=== PATIENT | male | born 1950 | race Caucasian/White ===

== ENCOUNTER 2022-03-11 14:22 | Emergency (ER) | payer MEDICARE ==
[2022-03-11] MEDS ORDERED: SODIUM CHLORIDE 0.9% 1,000 ML IV STA (17:42)
[2022-03-11 18:33] LABS: Appearance,Urine Clear (Clear); Bilirubin,Urine Negative (Negative); Blood,Urine Negative (Negative); Color,Urine Yellow; Glucose,Urine (UA) Negative (Negative); Ketones,Urine 1+ (Negative); Leukocyte Esterase,Urine Negative (Negative); Nitrite,Urine Negative (Negative); PH, Urine 5.5 (5.0-8.0); Protein,Urine Negative (Negative); Specific Gravity,Urine 1.012 (1.001-1.035); Urobilinogen,Urine <2.0 mg/dL (<2.0)
[2022-03-11 18:43] LABS: Basophils # (A) 0.1 k/uL (0-0.2); Basophils % (A) 1 %; Eosinophils # (A) 0.2 k/uL (0-0.7); Eosinophils % (A) 2 %; HGB 16.1 gm/dL (13.0-17.5); Lymphocytes # (A) 2.4 k/uL (1.0-4.8); Lymphocytes % (A) 31 %; MCH 33.5 pg (25.0-35.0); MCHC 34.2 g/dL (31.0-37.0); Monocytes # (A) 0.4 k/uL (0-1.0); Monocytes % (A) 5 %; Neutrophils # (A) 4.4 k/uL (1.3-7.7); Neutrophils % (A) 58 %; Platelet Count 198 k/uL (150-450); RDW 12.2 % (11.5-15.5); WBC 7.6 k/uL (3.8-10.6)
--- NOTE | 2022-03-11 18:54 | ED ---
General Adult HPI - General Chief complaint: Abdominal Pain Stated complaint: Lower Back Pain Time Seen by Provider: 03/11/22 17:34 Source: patient Mode of arrival: ambulatory Limitations: no limitations - History of Present Illness Initial comments: Patient is a 71-year-old male presenting with chief complaint of constipation. Patient states that over the last 2 days he has had an extremely small bowel movements. He states that it is causing pain in the lower back. Pain is worse with standing. No injury or trauma. Patient denies any abdominal pain. He was recently on antibiotics for UTI prescribed by his PCP. He states that when he urinates he sits down and then when he stands up he has to urinate again. No fever or chills. No nausea or vomiting. No hematochezia or melena. No chest pain or difficulty breathing. No palpitations, numbness, tingling, weakness. No loss of bowel or bladder control or saddle paresthesia. - Related Data Home Medications Medication Instructions Recorded Confirmed Ciprofloxacin HCl [Cipro] 500 mg PO BID 03/11/22 03/11/22 Omeprazole 20 mg PO DAILY 03/11/22 03/11/22 Simvastatin [Zocor] 40 mg PO DAILY 03/11/22 03/11/22 lisinopriL 40 mg PO DAILY 03/11/22 03/11/22 Allergies Allergy/AdvReac Type Severity Reaction Status Date / Time No Known Allergies Allergy Verified 03/11/22 20:04 Review of Systems ROS Statement: Those systems with pertinent positive or pertinent negative responses have been documented in the HPI. ROS Other: All systems not noted in ROS Statement are negative. Past Medical History Past Medical History: Hyperlipidemia, Hypertension History of Any Multi-Drug Resistant Organisms: None Reported Past Surgical History: Joint Replacement, Orthopedic Surgery Additional Past Surgical History / Comment(s): rt hip replacement 2020 Past Psychological History: No Psychological Hx Reported Smoking Status: Current every day smoker Past Alcohol Use History: Daily Past Drug Use History: None Reported General Exam Limitations: no limitations General appearance: alert, in no apparent distress Head exam: Present: atraumatic, normocephalic, normal inspection Eye exam: Present: normal appearance Neck exam: Present: normal inspection, full ROM Respiratory exam: Present: normal lung sounds bilaterally. Absent: respiratory distress, wheezes, rales, rhonchi, stridor Cardiovascular Exam: Present: regular rate, normal rhythm, normal heart sounds. Absent: systolic murmur, diastolic murmur, rubs, gallop, clicks GI/Abdominal exam: Present: soft. Absent: distended, tenderness, guarding, rebound, rigid Back exam: Absent: tenderness, CVA tenderness (R), CVA tenderness (L) Neurological exam: Present: alert, oriented X3, CN II-XII intact Psychiatric exam: Present: normal affect, normal mood Skin exam: Present: warm, dry, intact, normal color. Absent: rash Course Vital Signs 03/11/22 03/11/22 03/11/22 14:33 18:36 19:41 Temperature 98.0 F Pulse Rate 107 H 78 83 Respiratory 18 17 18 Rate Blood Pressure 161/103 154/102 172/109 O2 Sat by Pulse 98 99 97 Oximetry 03/11/22 03/11/22 20:21 22:50 Temperature 98.2 F Pulse Rate 82 88 Respiratory 17 17 Rate Blood Pressure 168/101 147/88 O2 Sat by Pulse 99 96 Oximetry Medical Decision Making - Medical Decision Making Patient is a 71-year-old male presenting with chief complaint of constipation. Patient states he hasn't had a bowel movement in 2 days, feels very bloated needs having lower back pain. Differential includes bowel obstruction, constipation, kidney stone, ileus, pyelonephritis, mechanical back pain. On physical examination heart and lungs are clear to auscultation, abdomen is soft, nontender, nondistended. No CVA tenderness. CBC shows no leukocytosis or anemia. CMP shows glucose 105, otherwise unremarkable. Lactic acid, amylase, lipase are WNL. Urine shows 1+ ketones, likely due to hydration status. CT of the abdomen and pelvis shows significant stool burden. Patient is given an en courtney here in the ER and is able to move his bowels. Patient reports significant improvement on reassessment. Patient is educated on supportive treatment for constipation, including at home Metamucil, MiraLAX, hydration, and staying active. Patient is discharged home. Follow-up with PCP. Report back to ER with any new or worsening symptoms. Discussed return parameters and answered all questions. Patient conveyed verbal understanding and agreed to the plan. I discussed this case in detail with my attending Dr. Ramon - Lab Data Result diagrams: 03/11/22 18:18 03/11/22 18:18 Lab Results 03/11/22 03/11/22 03/11/22 Range/Units 18:18 18:18 18:18 WBC 7.6 (3.8-10.6) k/uL RBC 4.80 (4.30-5.90) m/uL Hgb 16.1 (13.0-17.5) gm/dL Hct 47.0 (39.0-53.0) % MCV 98.0 (80.0-100.0) fL MCH 33.5 (25.0-35.0) pg MCHC 34.2 (31.0-37.0) g/dL RDW 12.2 (11.5-15.5) % Plt Count 198 (150-450) k/uL MPV 8.0 Neutrophils % 58 % Lymphocytes % 31 % Monocytes % 5 % Eosinophils % 2 % Basophils % 1 % Neutrophils # 4.4 (1.3-7.7) k/uL Lymphocytes # 2.4 (1.0-4.8) k/uL Monocytes # 0.4 (0-1.0) k/uL Eosinophils # 0.2 (0-0.7) k/uL Basophils # 0.1 (0-0.2) k/uL Sodium 141 (137-145) mmol/L Potassium 4.0 (3.5-5.1) mmol/L Chloride 107 (98-107) mmol/L Carbon Dioxide 26 (22-30) mmol/L Anion Gap 8 mmol/L BUN 14 (9-20) mg/dL Creatinine 0.91 (0.66-1.25) mg/dL Est GFR (CKD-EPI)AfAm >90 (>60 ml/min/1.73 sqM) Est GFR (CKD-EPI)NonAf 86 (>60 ml/min/1.73 sqM) Glucose 105 H (74-99) mg/dL Plasma Lactic Acid Alec (0.7-2.0) mmol/L Calcium 9.7 (8.4-10.2) mg/dL Total Bilirubin 0.5 (0.2-1.3) mg/dL AST 30 (17-59) U/L ALT 34 (4-49) U/L Alkaline Phosphatase 62 (38-126) U/L Total Protein 7.6 (6.3-8.2) g/dL Albumin 4.4 (3.5-5.0) g/dL Amylase 63 (30-110) U/L Lipase 181 (23-300) U/L Urine Color Yellow Urine Appearance Clear (Clear) Urine pH 5.5 (5.0-8.0) Ur Specific Clio 1.012 (1.001-1.035) Urine Protein Negative (Negative) Urine Glucose (UA) Negative (Negative) Urine Ketones 1+ H (Negative) Urine Blood Negative (Negative) Urine Nitrite Negative (Negative) Urine Bilirubin Negative (Negative) Urine Urobilinogen <2.0 (<2.0) mg/dL Ur Leukocyte Esterase Negative (Negative) 03/11/22 Range/Units 18:18 WBC (3.8-10.6) k/uL RBC (4.30-5.90) m/uL Hgb (13.0-17.5) gm/dL Hct (39.0-53.0) % MCV (80.0-100.0) fL MCH (25.0-35.0) pg MCHC (31.0-37.0) g/dL RDW (11.5-15.5) % Plt Count (150-450) k/uL MPV Neutrophils % % Lymphocytes % % Monocytes % % Eosinophils % % Basophils % % Neutrophils # (1.3-7.7) k/uL Lymphocytes # (1.0-4.8) k/uL Monocytes # (0-1.0) k/uL Eosinophils # (0-0.7) k/uL Basophils # (0-0.2) k/uL Sodium (137-145) mmol/L Potassium (3.5-5.1) mmol/L Chloride (98-107) mmol/L Carbon Dioxide (22-30) mmol/L Anion Gap mmol/L BUN (9-20) mg/dL Creatinine (0.66-1.25) mg/dL Est GFR (CKD-EPI)AfAm (>60 ml/min/1.73 sqM) Est GFR (CKD-EPI)NonAf (>60 ml/min/1.73 sqM) Glucose (74-99) mg/dL Plasma Lactic Acid Alec 0.9 (0.7-2.0) mmol/L Calcium (8.4-10.2) mg/dL Total Bilirubin (0.2-1.3) mg/dL AST (17-59) U/L ALT (4-49) U/L Alkaline Phosphatase (38-126) U/L Total Protein (6.3-8.2) g/dL Albumin (3.5-5.0) g/dL Amylase (30-110) U/L Lipase (23-300) U/L Urine Color Urine Appearance (Clear) Urine pH (5.0-8.0) Ur Specific Clio (1.001-1.035) Urine Protein (Negative) Urine Glucose (UA) (Negative) Urine Ketones (Negative) Urine Blood (Negative) Urine Nitrite (Negative) Urine Bilirubin (Negative) Urine Urobilinogen (<2.0) mg/dL Ur Leukocyte Esterase (Negative) Disposition Clinical Impression: Constipation Disposition: HOME SELF-CARE Condition: Good Instructions (If sedation given, give patient instructions): Constipation (ED), High Fiber Diet (ED) Additional Instructions: Follow-up with PCP. Report back to ER with any new or worsening symptoms. Take MiraLAX and an [id number] fiber supplement such as Metamucil as needed for the prevention of constipation. Try following high-fiber diet. Stay well hydrated and stay active. Take medication as prescribed. Do not take cyclobenzaprine before driving or operating heavy machinery as it may cause drowsiness. Is patient prescribed a controlled substance at d/c from ED?: No Referrals: Jeorme Cornejo DO [Primary Care Provider] - 1-2 days Time of Disposition: 22:36
[2022-03-11 18:56] LABS: ALT 34 U/L (4-49); AST 30 U/L (17-59); African American GFR (CKD) >90 (>60 ml/min/1.73 sqM); Albumin 4.4 g/dL (3.5-5.0); Alkaline Phosphatase 62 U/L (38-126); Amylase 63 U/L (30-110); Anion Gap 8 mmol/L; Blood Urea Nitrogen 14 mg/dL (9-20); Calcium 9.7 mg/dL (8.4-10.2); Carbon Dioxide 26 mmol/L (22-30); Chloride 107 mmol/L (98-107); Glucose 105 mg/dL (74-99); Lipase 181 U/L (23-300); Non-African American GFR(CKD) 86 (>60 ml/min/1.73 sqM); Sodium 141 mmol/L (137-145); Total Bilirubin 0.5 mg/dL (0.2-1.3); Total Protein 7.6 g/dL (6.3-8.2)
[2022-03-11] MEDS ORDERED: KETOROLAC 15 MG/ML 1 ML VIAL IVP STA (19:52)
[2022-03-11] MEDS ORDERED: ORPHENADRINE 30 MG/ML 2 ML VIAL IVP STA (19:52)
[2022-03-11 20:21] VITALS: RESP 17
--- NOTE | 2022-03-11 20:38 | CT ---
EXAMINATION TYPE: CT abdomen pelvis w con CT DLP: 983 mGycm, Automated exposure control for dose reduction was used. DATE OF EXAM: 03/11/2022 8:18 PM COMPARISON: None. CLINICAL INDICATION:Male, 71 years old with history of abdominal pain, constipation; Abdominal pain a nd constipation. Strong family Hx of colon CA. TECHNIQUE: Axial CT of the abdomen and pelvis. Sagittal and coronal reformats were created on a [employer] workstation. Contrast used:100cc mL of Isovue 300 with IV Contrast, Oral contrast used: without Oral Contrast FINDINGS: LOWER CHEST: Streaky atelectasis in the left lung base. ABDOMEN LIVER: Diffusely hypoattenuating parenchyma. GALLBLADDER AND BILE DUCTS: Unremarkable. PANCREAS: Unremarkable. SPLEEN: Unremarkable. ADRENAL GLANDS: Unremarkable. KIDNEYS AND URETERS: No evidence of hydronephrosis or renal calculus. Right renal cyst. PELVIS BLADDER: Unremarkable REPRODUCTIVE: Unremarkable. ABDOMEN & PELVIS STOMACH AND BOWEL: No evidence of bowel obstruction. Moderate to large stool burden throughout the co esteban. Scattered clonic diverticula present. No wall thickening appreciated. PERITONEUM: No evidence of pneumoperitoneum or free fluid. VASCULATURE: No evidence of aortic aneurysm. Atherosclerosis of the arterial vasculature. MUSCULOSKELETAL: No acute osseous abnormalities, right hip arthroplasty changes. Hardware appears in appropriate position. No evidence of fracture. Multilevel disc degeneration changes of the spine. Mul tilevel disc bulging throughout the lower spine. LYMPH NODES: No gross evidence for lymphadenopathy. SOFT TISSUE/ABDOMINAL WALL: Fat-containing left inguinal hernia. IMPRESSION: 1. No evidence for acute intra-abdominal process. No suspicious colonic wall thickening. No evidence of adenopathy. Moderate to large stool burden. 2. Clonic diverticulosis. 3. Hepatic steatosis.
[2022-03-11] MEDS ORDERED: NA PHOS,M-B/NA PHOS,DI-BA 133 ML ENEMA RECTAL STA (21:08)
[2022-03-11] MEDS ORDERED: CYCLOBENZAPRINE 10MG STARTER 3 TAB BTL PO STA (22:35)
[2022-03-11 22:51] VITALS: BP 147/88; PULSE 88; TEMP 98.2
== END 2022-03-11 22:51 | disposition home or self-care (01) ==
LOC: EC 14:22
DX: K59.00 Constipation, unspecified (principal); I10 Essential (primary) hypertension; E78.5 Hyperlipidemia, unspecified; F17.200 Nicotine dependence, unspecified, uncomplicated; Z79.899 Other long term (current) drug therapy
CPT/HCPCS: 36415; 80053; 82150; 83605; 83690; 85025; 81003; 74177; 99284; 96374; 96375; 96361; J2360; J1885; Q9967

== ENCOUNTER → 2022-04-08 | Day surgery (SDC) | payer MEDICARE ==
[2022-04-04 12:26] VITALS: BMI 24.8
[~2022-04-08] MED LIST: LACTATED RINGERS 1,000 ML IV ONE; LACTATED RINGERS 1,000 ML IV SCH; LIDOCAINE 1% (10MG/ML) FOR IV START INTRADERMA PRN; LIDOCAINE 2% INJ 20 MG/ML (2 ML VIAL) ONE; PROPOFOL 10 MG/ML 20 ML VIAL IV ONE
[2022-04-08 12:17] VITALS: RESP 16; TEMP 97
--- NOTE | 2022-04-08 14:01 | P.GSHP ---
History of Present Illness H&P Date: 04/08/22 Chief Complaint: Screening colonoscopy, constipation This is a 71-year-old male who presents today for screening colonoscopy. Patient has had bronchoscopy. Denies any significant issues. Past Medical History Past Medical History: Hyperlipidemia, Hypertension Additional Past Medical History / Comment(s): PINCHED NERVE IN BACK History of Any Multi-Drug Resistant Organisms: None Reported Past Surgical History: Joint Replacement, Orthopedic Surgery Additional Past Surgical History / Comment(s): rt hip replacement 2020, COLONOSCOPY X 3, LT KNEE SCOPE X 2, LT HAND SX, BASAL JOINT RECONTRUCTION LT THUMB X2, LT LITTLE FINGER SX, FACIAL RECONSTRUCTION LT SIDE, RT EYE SX TO REMOVE STEEL, RT SHOULDER X 3, Past Anesthesia/Blood Transfusion Reactions: Previous Problems w/ Anesthesia Additional Past Anesthesia/Blood Transfusion Reaction / Comment(s): WOKE UP DURING 1ST COLONOSCOPY Additional Past Alcohol Use History / Comment(s): SMOKES < 1 PPD FOR PAST 20 YEARS. 2-3 BEERS DAILY - Past Family History Father Family Medical History: Cancer Additional Family Medical History / Comment(s): COLONOSCOPY Medications and Allergies Home Medications Medication Instructions Recorded Confirmed Type Omeprazole 20 mg PO DAILY 03/11/22 04/08/22 History Simvastatin [Zocor] 40 mg PO DAILY 03/11/22 04/08/22 History lisinopriL 40 mg PO DAILY 03/11/22 04/08/22 History Naproxen [Naprosyn] 500 mg PO DAILY PRN 04/04/22 04/08/22 History Allergies Allergy/AdvReac Type Severity Reaction Status Date / Time No Known Allergies Allergy Verified 04/08/22 12:17 Surgical - Exam Vital Signs Temp Pulse Resp BP Pulse Ox 97 F L 96 16 172/97 99 04/08/22 12:10 04/08/22 12:10 04/08/22 12:10 04/08/22 12:10 04/08/22 12:10 - General well developed, well nourished, no distress - Eyes PERRL - ENT normal pinna - Neck no masses - Respiratory normal expansion - Cardiovascular Rhythm: regular - Abdomen Abdomen: soft, non tender Assessment and Plan Assessment: History of constipation. We'll perform screening colonoscopy.
--- NOTE | 2022-04-08 14:15 | P.OP ---
Date of Procedure: 04/08/22 Preoperative Diagnosis: Change in bowel habits Screening colonoscopy Postoperative Diagnosis: Diverticulosis Procedure(s) Performed: Colonoscopy Anesthesia: MAC Surgeon: Angel Latif Pathology: none sent Condition: stable Disposition: PACU Description of Procedure: The patient's placed on the endoscopy table in the lateral position. He received IV sedation. Digital rectal was performed.. This revealed no abnormalities. The flexible colonoscope was then placed patient anus and passed throughout the entire colon. The ileocecal valve was visualized. The cecum, ascending and transverse colon appeared normal. The descending; there is moderate diverticulosis. Scope was then brought back the rectum and this appeared normal. Scope withdrawn for patient.
[2022-04-08 14:38] VITALS: BP 143/99; PULSE 75
== END ==
LOC: ORWHC2ENDO 11:49
PROVIDERS: ATTEND Surgery
DX: R19.4 Change in bowel habit (principal); Z12.11 Encounter for screening for malignant neoplasm of colon; K57.30 Diverticulosis of large intestine without perforation or abscess without bleeding; E78.5 Hyperlipidemia, unspecified; I10 Essential (primary) hypertension; F17.210 Nicotine dependence, cigarettes, uncomplicated; K21.9 Gastro-esophageal reflux disease without esophagitis; Z79.899 Other long term (current) drug therapy; Z96.641 Presence of right artificial hip joint
CPT/HCPCS: 45378

== ENCOUNTER → 2022-08-16 | Outpatient (CLI) | payer MEDICARE ==
--- NOTE | 2022-08-16 15:59 | MR ---
EXAMINATION TYPE: MR lumbar spine wo con DATE OF EXAM: 08/16/2022 COMPARISON: Outside lumbar spine x-ray June 27, 2022 HISTORY: Low back pain into right side TECHNIQUE: Multiplanar, multisequence imaging of the lumbar spine is performed without IV contrast. FINDINGS: Sagittal images of the lumbar spine show vertebral body height to appear satisfactory. Slig ht grade 1 anterolisthesis L2 on L3 and L3 on L4 with slight grade 1 retrolisthesis of L4 on L5. Mult ilevel disc desiccation and mild to moderate multilevel disc space narrowing with relative sparing of L1-L2 level.. The conus medullaris is normal in position and signal ending mid L1 level. Mild to mo derate multilevel anterior spurring is seen. The bone marrow signal intensity is within normal limits . Axial images show T12-L1 and L1-L2 levels to appear within normal limits. Axial images at L2-L3 level show spondylolisthesis with moderate broad-based posterior disc protrusio n effacing the anterior thecal sac and causing mild to moderate bilateral anterior inferior neural fo raminal narrowing. Axial images at L3-L4 level shows moderate broad-based posterior disc protrusion effacing anterior th ecal sac along with mild facet arthropathy bilaterally. There is [id number]-[id number] bilateral anterior inferior neural foraminal narrowing. Axial images at L4-L5 level shows [id number] broad disc bulge minimally effaces the anterior th ecal sac along with mild facet arthropathy bilaterally. There is mild bilateral anterior inferior isatu ral foraminal narrowing seen. Axial images at L5-S1 level broad-based right paracentral disc protrusion minimally effacing anterior thecal sac and mild facet arthropathy bilaterally. There is asymmetric mild to moderate right greate r than left bilateral neural foraminal narrowing. Paraspinal muscle bulk is preserved. There is 2.7 cm simple appearing thin-walled cyst medially in th e right kidney axial image 29. IMPRESSION: Minimal spondylolisthesis and degenerative change in the lumbar spine as detailed above.
== END | disposition home or self-care (01) ==
LOC: RADMRIMAIN 14:46
PROVIDERS: ATTEND Nurse Practitioner Family
DX: M43.16 Spondylolisthesis, lumbar region (principal); M47.26 Other spondylosis with radiculopathy, lumbar region; M51.16 Intervertebral disc disorders with radiculopathy, lumbar region
CPT/HCPCS: 72148

== ENCOUNTER → 2022-10-17 | Outpatient (CLI) | payer MEDICARE ==
[2022-10-17 13:55] VITALS: BP 148/88; PULSE 93; RESP 15; TEMP 98
--- NOTE | 2022-10-17 14:51 | P.PAINPG ---
PQRS Measure Charge Sheet Comment: HISTORY OF PRESENT ILLNESS: 72 yr old male as a referral from [facility] presents today w severe and chronic LBP secondary to DDD, spondylosis and facet arthropathy without myelopathy for evaluation. Pt states pain level is provoked at 6 /10 in intensity, constant, localized in the lower lumbar spine, achy in character w shooting pain towards the RLE. Pain is provoked by over activity. Pain is alleviated by reclining, PT x 4 wks in 2022 which provoked pain, chriopractic treatments in May 2022 which were ineffective, heat & ice provide no relief, use of an inversion table with little relief, medications (Tramadol, Neurontin, Naproxen), Lidoderm, repositioning and rest. Oswestry axial pain score at 18. PMH: OA, Hyperlipidemia, HTN PSH: Colonoscopy x3 (2022), R Hip Replacement (2020), L Knee Arthroscopy x2, L Hand Surrery, L Thumb Basal Joint Reconstruction, L 5th Digit Surgery, Facial Re construction, R Eye Foreign Object Removal, R Shoulder Surgery x3 SH: 20 pack/ yr tobacco use, Daily beer consumption, No illicit drug use. Pt is a [employer] instructor. FH: Fa- CA. All: See list Meds: See list REVIEW OF ORGAN SYSTEMS: CONSTITUTIONAL: No fevers or chills. No recent weight loss. NEUROLOGICAL: + numbness and tingling along the distal ex tremities. No seizure disorders or headaches. MUSCULOSKELETAL: + pain PSYCHIATRIC: Denies current depression or suicidal thoughts. Physical Examinations : Constitutional : Cooperative , not in acute distress . Neurologic : Cranial nerve II to XII intact. No focal neurological deficits. Psychiatric : alert & oriented x 3. Matching mood & appropriate affect. Judgment & insight intact. Musculoskeletal : Cervical Spine Motor strength in the deltoid and biceps: Normal right side. Normal Left side Motor strength biceps and the wrist extensors: Normal right side . Normal left side Motor strength in the triceps muscle: Normal right side. Normal left side Deep tendon reflexes: Normal at the biceps. Normal at Brachioradialis. Normal at triceps Vertebral body tenderness to deep palpation over Cervical facet loading test: positive bilaterally Spurling test: positive bilaterally Neck distraction test: positive bilaterally Makenzie sign: positive bilaterally Lumbar spine Motor strength lower extremities ,thigh and legs 5/5 Right side , 5/5 Left side Deep tendon reflexes : Normal Knee Jerk. Normal Ankle Jerk Vertebral body tenderness over L4 Mann Test positive Lumbar facet Loading Test: positive Right / positive Left Range of motion of the lumbar spine Flexion 30 degrees, extension 10 degrees Straight Leg Raise test: Left/ Right positive at 35 degree Dmitry test: positive right / positive left. Severe tenderness over the Sacroiliac joint on the Right / Left sides Gaenslen test: positive bilaterally Seated flexion test: positive bilaterally. Sacral spine : Severe tenderness over the Sacroiliac joint: right side / left side Range of motion: Flexion of the lumbar spine <60 degrees Range of motion: Extension of the lumbar spine <20 degrees Gaenslen's Test positive Thang's Test positive Dmitry test: positive right side / left side Thigh Thrust Test Sacral Thrust Test Imaging: MRI without contrast of the lumbar spine. 08/16/22 reviewed Assessment/ Plan : Lumbar DDD Recommendation of SID L4-L5 #1. May need a series of injections for optimal pain relief. Risks, benefits of procedure discussed and patient verbalized faustino sosa. Admits to aspirin or anti- coagulant use or medical history of diabetes. Protocol for discontinuation/ continuation of medications mk procedure discussed. Minimal anesthesia provided, if clinically indicated, consisting of Versed and Fentanyl. All questions answered. I have spent greater than 30 minutes on patient care today. Dr Angelo was available by phone for the evaluation of this patient. The time was used to review the medical records including relevant urine studies and Prescription history (MAPs), review of the available imaging, evaluation and examination of the patient, coordination of care with the medical staff and if applicable referring physicians, as well as creation of the medical record Home Medications: Ambulatory Orders Omeprazole 20 mg PO DAILY 03/11/22 Simvastatin [Zocor] 40 mg PO DAILY 03/11/22 lisinopriL 40 mg PO DAILY 03/11/22 Naproxen [Naprosyn] 500 mg PO DAILY PRN 04/04/22 Gabapentin [Neurontin] 300 mg PO DAILY PRN 10/17/22 Multivitamins, Thera [Multivitamin (formulary)] 1 tab PO DAILY 10/17/22 traMADol HCL 50 mg PO DAILY PRN 10/17/22 Controlled Substance Measures - Controlled Substance Measures Is patient prescribed a controlled substance at discharge?: No
== END ==
LOC: PNWHC3 13:00
PROVIDERS: ATTEND Specialist
DX: M51.36 Other intervertebral disc degeneration, lumbar region (principal); M19.90 Unspecified osteoarthritis, unspecified site; M47.26 Other spondylosis with radiculopathy, lumbar region; E78.5 Hyperlipidemia, unspecified; I10 Essential (primary) hypertension; F17.210 Nicotine dependence, cigarettes, uncomplicated; M48.061 Spinal stenosis, lumbar region without neurogenic claudication; Z79.01 Long term (current) use of anticoagulants
CPT/HCPCS: 99211

== ENCOUNTER 2022-11-07 10:41 | Day surgery (SDC) | payer MEDICARE ==
[2022-11-05 09:59] VITALS: BMI 25.0
[~2022-11-07 10:41] MED LIST changes: -LACTATED RINGERS 1,000 ML IV ONE; -LIDOCAINE 1% (10MG/ML) FOR IV START INTRADERMA PRN; -LIDOCAINE 2% INJ 20 MG/ML (2 ML VIAL) ONE; -PROPOFOL 10 MG/ML 20 ML VIAL IV ONE
[2022-11-07 11:10] VITALS: RESP 16; TEMP 98.3
[2022-11-07] MEDS ORDERED: ROPIVACAINE 5MG/ML 20ML VIAL ONE (11:50)
[2022-11-07] MEDS ORDERED: TRIAMCINOLONE ACETONIDE 40 MG/ML 1 ML VIAL ONE (11:50)
[2022-11-07] MEDS ORDERED: IOPAMIDOL M200 10 ML VIAL ONE (11:50)
--- NOTE | 2022-11-07 11:58 | P.PCN ---
Date of Procedure: 11/07/22 Surgeon: Rea Sanchez Pathology: none sent Condition: stable Disposition: PACU Description of Procedure: PREOPERATIVE DIAGNOSIS: 1-Lumbar radiculopathy 2- Lumber Degenerative Disc Diseases. POSTOPERATIVE DIAGNOSIS: 1-Lumbar radiculopathy. 2-Lumbar Degenerative Disc Diseases PROCEDURE 1. Lumbar epidural steroid injection under fluoroscopic guidance at the L4-5 level in the right paramedian approach. 2. Lumbar epidurogram. ANESTHESIA: Local with 1% lidocaine EBL: Minimal PROCEDURE INDICATION: The patient with low back pain and radiculitis symptoms unresponsive to conservative treatment. Fluoroscopy was used to optimize visualization of the needle placement and to maximize safety. PROCEDURE DESCRIPTION / TECHNIQUE: The patient was seen and identified in the preoperative area. Risks, benefits, complications including but not limited to infections ,bleeding ,allergic reaction to the medications ,nerve damage and not complete pain relief , and alternatives were discussed with the patient. The patient agreed to proceed with the procedure and signed the consent. IV was started, and vital signs were stable. Patient was taken to the OR and time out was completed. The patient was placed in the prone position on procedure table and a pillow was placed under the abdomen to reduce lumbar lordosis. The lumbosacral area was prepped and draped in the usual sterile fashion with ChloraPrep.Patient was closely monitored during the procedure. Conscious sedation was used during the procedure to decrease patients anxiety. Vital signs were monitered during the entire procedure. Using anterior-posterior fluoroscopy, the L4-5 interlaminar space was identified and the skin over this site was marked and then infiltrated with 1% lidocaine subcutaneously. Subsequently, a 20-gauge Tuohy epidural needle was inserted and advanced toward the epidural space using the Loss of resistance to air technique and guided by AP and lateral fluoroscopy. The correct needle position in the epidural space was verified with the injection of 1 mL of the water soluble contrast dye Omnipaque 180 contrast and observing an excellent epidurogram with the epidural spread of the dye, after negative aspiration for blood and CSF and in the absence of paresthesias. Again after negative aspiration, a 8 ml mixture containing 80 mg of Kenalog and 5 ml of preservative free Normal Saline, and 2 ml of preservative free Ropivacaine 0.5% solution was injected and a washout of epidurogram was seen. Needle was withdrawn intact, skin was cleansed, and bandages were applied. patient tolerated procedure well and was transferred to PACU in stable condition.A copy of the needle placement picture was saved to the fluoroscopy machine. COMPLICATIONS: None
--- NOTE | 2022-11-07 12:11 | FL ---
Intraoperative/procedural fluoroscopic services were provided for lumbar epidural injection. Total fl uoroscopy time is 5.5 seconds with a total of 2 submitted images to PACS. Total DAP [id number] mGym2. P lease see the operative note for further details.
[2022-11-07 12:24] VITALS: BP 180/95; PULSE 85
== END 2022-11-07 12:41 | disposition home or self-care (01) ==
LOC: ORPAIN 10:41
PROVIDERS: ATTEND Anesthesiology
DX: M51.16 Intervertebral disc disorders with radiculopathy, lumbar region (principal); I10 Essential (primary) hypertension; F17.210 Nicotine dependence, cigarettes, uncomplicated; Z96.641 Presence of right artificial hip joint
CPT/HCPCS: 62323; J3301; Q9966; J2795

== ENCOUNTER → 2022-12-05 | Outpatient (CLI) | payer MEDICARE ==
--- NOTE | 2022-12-05 13:56 | P.PAINPG ---
PQRS Measure Charge Sheet Comment: HISTORY OF PRESENT ILLNESS: 72 yr old male presents today w severe and chronic LBP secondary to DDD, spondylosis and facet arthropathy without myelopathy for evaluation s/p R paramedian SID L4-L5. Pt states he experienced 80% pain relief for the last 3 wks since procedure. Pt states pain level is provoked at 0 /10 in intensity. Pain is alleviated by injections, reclining, PT x 4 wks in 2022 which provoked pain, chiropractic treatments in May 2022 which were ineffective, heat & ice provide no relief, use of an inversion table with little relief, medications, repositioning and rest. Interventional procedures include R paramedian SID L4-L5 x1 Medications include Tramadol, Neurontin, Naproxen, Lidoderm REVIEW OF ORGAN SYSTEMS: CONSTITUTIONAL: No fevers or chills. No recent weight loss. NEUROLOGICAL: + numbness and tingling along the distal extremities. No seizure disorders or headaches. MUSCULOSKELETAL: + pain PSYCHIATRIC: Denies current depression or suicidal thoughts. Physical Examinations : Constitutional : Cooperative , not in acute distress . Neurologic : Cranial nerve II to XII intact. No focal neurological deficits. Psychiatric : alert & oriented x 3. Matching mood & appropriate affect. Judgment & insight intact. Musculoskeletal : Cervical Spine Motor strength in the deltoid and biceps: Normal right side. Normal Left side Motor strength biceps and the wrist extensors: Normal right side . Normal left side Motor strength in the triceps muscle: Normal right side. Normal left side Deep tendon reflexes: Normal at the biceps. Normal at Brachioradialis. Normal at triceps Vertebral body tenderness to deep palpation over Cervical facet loading test: positive bilaterally Spurling test: positive bilaterally Neck distraction test: positive bilaterally Makenzie sign: positive bilaterally Lumbar spine Motor strength lower extremities ,thigh and legs 5/5 Right side , 5/5 Left side Deep tendon reflexes : Normal Knee Jerk. Normal Ankle Jerk Vertebral body tenderness over L4 Mann Test positive Lumbar facet Loading Test: positive Right / positive Left Range of motion of the lumbar spine Flexion 30 degrees, extension 10 degrees Straight Leg Raise test: Left/ Right positive at 35 degree Dmitry test: positive right / positive left. Severe tenderness over the Sacroiliac joint on the Right / Left sides Gaenslen test: positive bilaterally Seated flexion test: positive bilaterally. Sacral spine : Severe tenderness over the Sacroiliac joint: right side / left side Range of motion: Flexion of the lumbar spine <60 degrees Range of motion: Extension of the lumbar spine <20 degrees Gaenslen's Test positive Thang's Test positive Dmitry test: positive right side / left side Thigh Thrust Test Sacral Thrust Test Imaging: MRI without contrast of the lumbar spine from 08/16/22 reviewed Assessment/ Plan : Lumbar DDD Pt will manage residual pain at home and may return to clinic on an as needed basis. All questions answered. I have spent greater than 30 minutes on patient care today. Dr Angelo was available by phone for the evaluation of this patient. The time was used to review the medical records including relevant urine studies and Prescription history (MAPs), review of the available imaging, evaluation and examination of the patient, coordination of care with the medical staff and if applicable referring physicians, as well as creation of the medical record PQRS Narrative: Hx Alcohol Use (MH) Yes: at least 3 beers a day Home Medications: Ambulatory Orders Omeprazole 20 mg PO DAILY 03/11/22 Simvastatin [Zocor] 40 mg PO DAILY 03/11/22 lisinopriL 40 mg PO DAILY 03/11/22 Naproxen [Naprosyn] 500 mg PO DAILY PRN 04/04/22 Gabapentin [Neurontin] 300 mg PO DAILY PRN 10/17/22 Multivitamins, Thera [Multivitamin (formulary)] 1 tab PO DAILY 10/17/22 traMADol HCL 50 mg PO DAILY PRN 10/17/22 Controlled Substance Measures - Controlled Substance Measures Is patient prescribed a controlled substance at discharge?: No
[2022-12-05 14:52] VITALS: BP 142/90; PULSE 79; RESP 15; TEMP 98.2
== END ==
LOC: PNWHC3 13:05
PROVIDERS: ATTEND Specialist
DX: M51.36 Other intervertebral disc degeneration, lumbar region (principal)
CPT/HCPCS: 99211

== ENCOUNTER → 2023-09-25 | Outpatient (CLI) | payer MEDICARE ==
[2023-09-25 14:56] VITALS: BP 179/109; PULSE 94; RESP 16
--- NOTE | 2023-09-25 14:59 | P.PAINPG ---
PQRS Measure Charge Sheet Comment: HISTORY OF PRESENT ILLNESS: A 73 yr old male presents today w severe and chronic LBP secondary to DDD, spondylosis and facet arthropathy without myelopathy for evaluation. Pt states pain level is provoked at 7 /10 in intensity, constant, predominantly axial, sharp in character w occasional radiation of pain towards the BL knees. Pain is alleviated by a physician guided home stretching regimen daily since Sep 2022, injections in the past, use of an inversion table with little relief, medications, reclining, repositioning and rest. Pain was provoked by PT x 4 wks in 2022 which was discontinued, chiropractic treatments in May 2022 which were ineffective, heat & ice provide no relief. Oswestry axial pain score of 36 . Interventional procedures include R paramedian SID L4-L5 x1 Medications include Tramadol, Neurontin, Naproxen, Lidoderm REVIEW OF ORGAN SYSTEMS: CONSTITUTIONAL: No fevers or chills. No recent weight loss. NEUROLOGICAL: + numbness and tingling along the distal extremities. No seizure disorders or headaches. MUSCULOSKELETAL: + pain PSYCHIATRIC: Denies current depression or suicidal thoughts. Physical Examinations : Constitutional : Cooperative , not in acute distress . Neurologic : Cranial nerve II to XII intact. No focal neurological deficits. Psychiatric : alert & oriented x 3. Matching mood & appropriate affect. Judgment & insight intact. Musculoskeletal : Cervical Spine Motor strength in the deltoid and biceps: Normal right side. Normal Left side Motor strength biceps and the wrist extensors: Normal right side . Normal left side Motor strength in the triceps muscle: Normal right side. Normal left side Deep tendon reflexes: Normal at the biceps. Normal at Brachioradialis. Normal at triceps Vertebral body tenderness to deep palpation over Cervical facet loading test: positive bilaterally Spurling test: positive bilaterally Neck distraction test: positive bilaterally Makenzie sign: positive bilaterally Lumbar spine Motor strength lower extremities ,thigh and legs 5/5 Right side , 5/5 Left side Deep tendon reflexes : Normal Knee Jerk. Normal Ankle Jerk Vertebral body tenderness over L4 Mann Test positive BL L4-L5 Lumbar facet Loading Test: positive Right / positive Left Range of motion of the lumbar spine Flexion 30 degrees, extension 10 degrees Straight Leg Raise test: Left/ Right positive at 35 degree Dmitry test: positive right / positive left. Severe tenderness over the Sacroiliac joint on the Right / Left sides Gaenslen test: positive bilaterally Seated flexion test: positive bilaterally. Sacral spine : Severe tenderness over the Sacroiliac joint: right side / left side Range of motion: Flexion of the lumbar spine <60 degrees Range of motion: Extension of the lumbar spine <20 degrees Gaenslen's Test positive Thang's Test positive Dmitry test: positive right side / left side Thigh Thrust Test Sacral Thrust Test Imaging: MRI without contrast of the lumbar spine from 08/16/22 reviewed Assessment/ Plan : Lumbar DDD Recommendation of SID L4-L5 #1. May need a series of injections for optimal pain relief. Risks, benefits of procedure discussed and pt verbalized understanding. Protocol for discontinuation/ continuation of medications mk procedure discussed. All questions answered. I have spent greater than 30 minutes on patient care today. Dr Angelo was available by phone for the evaluation of this patient. The time was used to review the medical records including relevant urine studies and Prescription history (MAPs), review of the available imaging, evaluation and examination of the patient, coordination of care with the medical staff and if applicable referring physicians, as well as creation of the medical record PQRS Narrative: Hx Alcohol Use (MH) Yes: at least 3 beers a day Home Medications: Ambulatory Orders Omeprazole 20 mg PO DAILY 03/11/22 Simvastatin [Zocor] 40 mg PO DAILY 03/11/22 lisinopriL 40 mg PO DAILY 03/11/22 Naproxen [Naprosyn] 500 mg PO DAILY PRN 04/04/22 Gabapentin [Neurontin] 300 mg PO DAILY PRN 10/17/22 Multivitamins, Thera [Multivitamin (formulary)] 1 tab PO DAILY 10/17/22 traMADol HCL 50 mg PO DAILY PRN 10/17/22 Controlled Substance Measures - Controlled Substance Measures Is patient prescribed a controlled substance at discharge?: No
== END ==
LOC: PNWHC3 13:43
PROVIDERS: ATTEND Specialist
DX: M51.36 Other intervertebral disc degeneration, lumbar region (principal)
CPT/HCPCS: 99211

== ENCOUNTER 2023-10-14 12:25 | Day surgery (SDC) | payer MEDICARE ==
[2023-10-13 10:47] VITALS: BMI 25.0
[2023-10-14 12:48] VITALS: TEMP 98.1
[2023-10-14] MEDS ORDERED: ROPIVACAINE 5MG/ML 20ML VIAL ONE (14:04)
[2023-10-14] MEDS ORDERED: IOPAMIDOL M300 15ML VIAL ONE (14:04)
[2023-10-14] MEDS ORDERED: methylPREDNISolone ACETATE 80 MG/ML 1 ML VIAL ONE (14:04)
[2023-10-14 14:22] VITALS: RESP 18
--- NOTE | 2023-10-14 14:24 | P.PCN ---
Description of Procedure: PREOPERATIVE DIAGNOSIS: 1- Lumbar Degenerative Disc Diseases 2-Lumbar spondylosis with Facet arthropathy without myelopathy. 3-lumbar spinal stenosis POSTOPERATIVE DIAGNOSIS: 1-lumbar degenerative disc disease. 2-lumbar spondylosis with facet arthropathy without myelopathy. 3-lumbar spinal stenosis. PROCEDURE Injection of radio contrast material into L4-5 interspace, interpretation of epidurogram, injection of steroid at L4- 5 epidural space under fluoroscopic guidance. ANESTHESIA: Lidocaine 1% subcutaneously. In OR continuous pulse ox, EKG, blood pressure and verbal communication was maintained with the patient. EBL: Minimal PROCEDURE INDICATION: Before the procedure were discussed with the patient detailed procedure, alternatives, complications including infection, bleeding, nerve damage, paralysis all of which could be permanent. Patient understands and all questions were answered. PROCEDURE DESCRIPTION : After getting consent, patient in OR in prone position. Back was prepped with chlorhexidine and draped in sterile fashion. After injecting 10 mL of 1% lidocaine subcutaneously, a 20-gauge Tuohy needle was introduced at L4 5 interspace with loss of resistance technique using a syringe filled with air. Negative CSF, negative blood, negative paresthesia. Needle position was confirmed with AP and lateral view of the fluoroscope. After repeat negative aspiration 2 mL of Omnipaque 200 water soluble contrast was injected. Contrast was noted in the epidural space. No contrast was noted into intrathecal or intravascular space. After repeat negative aspiration 6 mL solution was injected intermittently which consists of 5 mL of preservative-free normal saline mixed with 1 mL of 80 mg Depo-Medrol. Needle was withdrawn intact. Skin was cleansed and Band-Aids was applied. DISPOSITION / PLANS: The patient tolerated the procedure well. No complication. The patient was placed in a supine position and transferred to the recovery area in a stable condition for observation. There was no evidence of lower extremity motor or sensory deficit after the procedure. Patient was discharged from the recovery room after meeting discharge criteria. Home discharge instructions were given to the patient by the staff. The patient was reexamined prior to discharge. The patient will schedule a follow up in the clinic in 2-4 weeks.
[2023-10-14 14:39] VITALS: BP 153/95; PULSE 95
--- NOTE | 2023-10-14 15:24 | FL ---
EXAMINATION TYPE: FL guided pain mgmt statistic Intraoperative/procedural fluoroscopic services were provided. Total fluoroscopy time is 14.3 seconds with a total of 2 submitted images to PACS. Please s ee the operative/procedural note for further details. DAP: [id number] mGym2
== END 2023-10-14 15:01 | disposition home or self-care (01) ==
LOC: ORPAIN 12:25
PROVIDERS: ATTEND Pain Medicine Interventional Pain Medicine
DX: M47.816 Spondylosis without myelopathy or radiculopathy, lumbar region (principal); M48.061 Spinal stenosis, lumbar region without neurogenic claudication; M51.36 Other intervertebral disc degeneration, lumbar region; Z79.1 Long term (current) use of non-steroidal anti-inflammatories (NSAID)
CPT/HCPCS: 62323; Q9967; J2795; J1010

== ENCOUNTER → 2024-10-06 | Outpatient (CLI) | payer MEDICARE ==
[2024-10-06 13:35] VITALS: BP 156/94; PULSE 90; RESP 18
--- NOTE | 2024-10-06 15:59 | P.PAINPG ---
Objective - Vital Signs Vital signs: Vital Signs Temp Pulse 90 10/06/24 13:27 Resp 18 10/06/24 13:27 BP 156/94 10/06/24 13:27 Pulse Ox 96 10/06/24 13:27 FiO2 Intake & Output 10/05/24 10/06/24 10/06/24 18:59 06:59 18:59 Weight 84.822 kg PQRS Measure Charge Sheet Mode of Arrival: Ambulatory Comment: HISTORY OF PRESENT ILLNESS: A 74 yr old male presents today w severe and chronic LBP secondary to DDD, spondylosis and facet arthropathy without myelopathy for evaluation s/p SID L4- L5 #1. Pt states he experienced 90 % pain relief x 4 mo s/p procedure. Pt states pain level is provoked at 7 /10 in intensity, constant, predominantly axial, sharp in character w occasional radiation of pain towards the BL knees, R> L. Pain is alleviated by a physician guided home stretching regimen daily since Sep 2022, injections in the past, use of an inversion table with little relief, medications, reclining, repositioning and rest. Pain was provoked by PT x 4 wks in 2022 which was discontinued, chiropractic treatments in May 2022 which were ineffective, heat & ice provide no relief. Oswestry axial pain score of 36 . Interventional procedures include R paramedian SID L4-L5 x1 Medications include Tramadol, Neurontin, Naproxen, Lidoderm REVIEW OF ORGAN SYSTEMS: CONSTITUTIONAL: No fevers or chills. No recent weight loss. NEUROLOGICAL: + numbness and tingling along the distal extremities. No seizure disorders or headaches. MUSCULOSKELETAL: + pain PSYCHIATRIC: Denies current depression or suicidal thoughts. Physical Examinations : Constitutional : Cooperative , not in acute distress . Neurologic : Cranial nerve II to XII intact. No focal neurological deficits. Psychiatric : alert & oriented x 3. Matching mood & appropriate affect. Judgment & insight intact. Musculoskeletal : Cervical Spine Motor strength in the deltoid and biceps: Normal right side. Normal Left side Motor strength biceps and the wrist extensors: Normal right side . Normal left side Motor strength in the triceps muscle: Normal right side. Normal left side Deep tendon reflexes: Normal at the biceps. Normal at Brachioradialis. Normal at triceps Vertebral body tenderness to deep palpation over Cervical facet loading test: positive bilaterally Spurling test: positive bilaterally Neck distraction test: positive bilaterally Makenzie sign: positive bilaterally Lumbar spine Motor strength lower extremities ,thigh and legs 5/5 Right side , 5/5 Left side Deep tendon reflexes : Normal Knee Jerk. Normal Ankle Jerk Vertebral body tenderness over L4 Mann Test positive BL L4-L5 Lumbar facet Loading Test: positive Right / positive Left Range of motion of the lumbar spine Flexion 30 degrees, extension 10 degrees Straight Leg Raise test: Left/ Right positive at 35 degree Dmitry test: positive right / positive left. Severe tenderness over the Sacroiliac joint on the Right / Left sides Gaenslen test: positive bilaterally Seated flexion test: positive bilaterally. Sacral spine : Severe tenderness over the Sacroiliac joint: right side / left side Range of motion: Flexion of the lumbar spine <60 degrees Range of motion: Extension of the lumbar spine <20 degrees Gaenslen's Test positive Thang's Test positive Dmitry test: positive right side / left side Thigh Thrust Test Sacral Thrust Test Imaging: MRI without contrast of the lumbar spine from 08/16/22 reviewed Assessment/ Plan : Lumbar radiculopathy Recommendation of SID L4-L5 #1. Risks, benefits of procedure discussed and pt verbalized understanding. Protocol for discontinuation/ continuation of medications mk procedure discussed. All questions answered. I have spent greater than 30 minutes on patient care today. Dr Angelo was available by phone for the evaluation of this patient. The time was used to review the medical records including relevant urine studies and Prescription history (MAPs), review of the available imaging, evaluation and examination of the patient, coordination of care with the medical staff and if applicable referring physicians, as well as creation of the medical record - Pain Location Lower Back Pharmacological Interventions: Medication PQRS Narrative: Blood Pressure 156/94 Pain Intensity [Lower Back] 5 Scale Used Numeric (1 - 10) Hx Alcohol Use (MH) Yes: at least 3 beers a day Home Medications: Ambulatory Orders Omeprazole 20 mg PO DAILY 03/11/22 Simvastatin [Zocor] 40 mg PO HS 03/11/22 Naproxen [Naprosyn] 500 mg PO DAILY PRN 04/04/22 Gabapentin [Neurontin] 300 mg PO DAILY PRN 10/17/22 Multivitamins, Thera [Multivitamin (formulary)] 1 tab PO DAILY 10/17/22 amLODIPine BESYLATE/BENAZEPRIL [amLODIPine BESYLATE/BENAZEPRIL 10-20 mg] 1 cap PO QAM 10/13/23 Controlled Substance Measures - Controlled Substance Measures Is patient prescribed a controlled substance at discharge?: No
== END ==
LOC: PNWHC3 13:18
PROVIDERS: ATTEND Specialist
DX: M47.26 Other spondylosis with radiculopathy, lumbar region (principal); F12.90 Cannabis use, unspecified, uncomplicated
CPT/HCPCS: 99212